=== PATIENT | female | born 1945 | race Caucasian/White ===

== ENCOUNTER 2016-06-10 11:20 | Day surgery (SDC) | payer MEDICARE, OTHER ==
[~2016-06-10] VITALS: Ht 157.5 cm; Wt 81.8 kg
[2016-06-10] VITALS (10 sets, daily range): BP systolic 114–142; BP diastolic 48–70
[~2016-06-10 11:20] MED LIST: ACHD5005 PO; OMEP-10 PO; PRX20T PO; SCR1T1 PO; SIMV20TA3 PO
[2016-06-10] MEDS ORDERED: NS IV 1000 ML 1,000 ML ONE (11:34)
[2016-06-10] MEDS ORDERED: LIDOCAINE 1% INJ 20 ML (XYLOCAINE) VIAL ONE (11:34)
[2016-06-10] MEDS ORDERED: HEParin (CATH LAB) 2,000 ML IV ONE (11:34)
[2016-06-10] MEDS ORDERED: fentaNYL INJECTION 100 MCG/2 ML AMP ONE (11:38)
[2016-06-10] MEDS ORDERED: MIDAZOLAM 5 MG/5 ML (VERSED) VIAL ONE (11:38)
--- NOTE | 2016-06-10 11:39 | ED Chest Pain ---
General Stated Complaint: EKG CHANGES Source: patient Exam Limitations: no limitations History of Present Illness Time seen by provider: 11:25 Initial Comments Here from the surgery Center for Dr. Ramirez, orthopedics. Patient was getting ready to undergo procedure for right shoulder rotator cuff. Apparently during anesthesia, patient was having rhythm changes on EKG. They stopped anesthesia and woke patient. She was then complaining of back pain. Apparently patient has been having intermittent back pain with activity that resolves during rest. She was having the same pain today. They did initiate nitroglycerin paste and morphine 2 mg IV which then resolved her pain. Currently she is pain-free. She has new onset of left bundle branch block. This continues. She does have thalassemia disorder and anemia. Timing/Duration: intermittent Severity/Quality: moderate, aching Location: back Radiation: no radiation Prior CP/Workup: no prior cardiac workup ASA po PERSONALIZED LIVING MANAGER: No NTG SL PERSONALIZED LIVING MANAGER: Yes Associated Symptoms: No abdominal pain, back painNo diaphoresis, No fever/ chills, No nausea/vomiting, No shortness of breath, No weakness Allergies and Home Medications Allergies Coded Allergies: No Known Drug Allergies (Unverified , 07/13/13) Home Medications Hydrocodone Bit/Acetaminophen 1 Each Tablet #60 1-2 EACH PO Q6H Prescribed by: FOUZIA ROSALES on 07/17/13 1102 Paroxetine Hcl 20 Mg Tablet #30 1 TAB PO DAILY (Reported) Sucralfate 1 Gm Tab #60 1 GM PO BID Prescribed by: FOUZIA ROSALES on 07/17/13 1057 Review of Systems Constitutional: see HPINo chills, No fever EENTM: No Symptoms Reported Respiratory: No Symptoms ReportedDenies Shortness of Air, Denies SOA at Rest Cardiovascular: See HPI Chest PainDenies Edema, Denies Palpitations Gastrointestinal: No Symptoms Reported Genitourinary: No Symptoms Reported Musculoskeletal: see HPI back pain joint pain Skin: no symptoms reported Psychiatric/Neurological: No Symptoms Reported All Other Systems Reviewed Negative Unless Noted: Yes Past Pwrxcgj-Igfycn-Kgofvr Hx Patient Social History Alcohol Use: Denies Use Recreational Drug Use: No Smoking Status: Never a Smoker Immunizations Up To Date Tetanus Booster (TDap): Unknown PED Vaccines UTD: No Date of Pneumonia Vaccine: Feb 19, 2010 Date of Influenza Vaccine: Mar 12, 2012 Surgeries HX Surgeries: Yes (shoulder surgery 2007) Respiratory Hx Respiratory Disorders: No Cardiovascular Hx Cardiac Disorders: No Neurological Hx Neurological Disorders: No Reproductive System Hx Reproductive Disorders: No Sexually Transmitted Disease: No HIV/AIDS: No Female Reproductive Disorders: Denies Genitourinary Hx Genitourinary Disorders: No Gastrointestinal Hx Gastrointestinal Disorders: Yes Musculoskeletal Hx Musculoskeletal Disorders: No Endocrine Hx Endocrine Disorders: No HEENT HX ENT Disorders: No Loss of Vision: Denies Hearing Impairment: Denies Cancer Hx Cancer: No Psychosocial Hx Psychiatric Problems: No Integumentary HX Skin/Integumentary Disorder: No Blood Transfusions Hx Blood Disorders: No Adverse Reaction to a Blood Tr: No Reviewed Nursing Assessment Reviewed/Agree w Nursing PMH: Yes Family Medical History Significant Family History: Heart Disease Family Medial History: Cancer 03 FATHER 03 MOTHER Cancer of colon 03 FATHER 03 MOTHER Malignant neoplasm of lung 09 BROTHER Psychotic disorder 09 BROTHER Physical Exam Vital Signs Capillary Refill : General Appearance: No Apparent Distress WD/WN HEENT: PERRL/EOMI Pharynx Normal Neck: Non Tender Supple Respiratory: Lungs Clear Normal Breath Sounds Cardiovascular: Regular Rate, Rhythm No Murmur Gastrointestinal: Non Tender Soft Extremity: Non Tender No Calf Tenderness Neurologic/Psychiatric: Alert Oriented x3 Skin: Normal Color Warm/Dry Progress/Results/Core Measures Results/Orders My Orders Orders-PREMA OROZCO MD Cbc With Automated Diff (06/10/16 11:33) Magnesium (06/10/16 11:33) Chest 1 View, Ap/Pa Only (06/10/16 11:33) Ekg Tracing (06/10/16 11:33) Cardiac Profile 1 (06/10/16 11:33) Comprehensive Metabolic Panel (06/10/16 11:33) Myoglobin Serum (06/10/16 11:33) Protime With Inr (06/10/16 11:33) Partial Thromboplastin Time (06/10/16 11:33) O2 (06/10/16 11:33) Monitor-Rhythm Ecg Trace Only (06/10/16 11:33) Lipid Panel (06/11/16 06:00) Aspirin Chewable Tablet (Baby Aspirin Ch (06/10/16 11:45) Saline Lock/Iv-Start (06/10/16 11:33) Fibrin Degradation Products (06/10/16 11:33) Lidocaine 1% Injection (Xylocaine 1% Inj (06/10/16 11:34) Ns Iv 1000 Ml (Sodium Chloride 0.9%) (06/10/16 11:34) Heparin (Cardiology Manager) (Heparin (Cardiology Manager)) (06/10/16 11:34) Progress Note : Progress Note Seen and evaluated on arrival by EMS. IV by EMS. Labs, EKG and chest x-ray ordered. ASA 324 milligrams by mouth ordered. 1134: I did discuss the case with Dr. Mora. In light of new left bundle-branch block and pain relieved by nitroglycerin he is considering catheter lab evaluation. 1138: Dr. Mora in the ER evaluating. Monitor patient. 1145: Dr. Mora will take the patient to the Cardiology Manager. Labs pending. 1200: Patient to Cardiology Manager with Cardiology Manager team. Chest x-ray not done in ER. ECG Initial ECG Impression Date: Jun 10, 2016 Initial ECG Impression Time: 11:28 Initial ECG Rate: 94 Initial ECG Rhythm: Normal Sinus Comment Sinus rhythm with left bundle branch block. Normal axis. No evidence of ST elevation DE. Unchanged from previous sinus rhythm noted on 07/13/13 from EKG in our system and from 06/06/16 from EKG from surgery Center. Departure Communication Time/Spoke to Admitting Phy: 11:34 Impression Impression: Primary Impression: Chest pain Qualified Code: R07.2 - Precordial pain Additional Impression: Left bundle branch block Disposition: 01 HOME, SELF-CARE Condition: Improved Decision to Admit Reason: Admit from ER (General) Decision to Admit/Date: Jun 10, 2016 Time/Decision to Admit Time: 11:34 Departure-Patient Inst. Referrals: CHIQUI NASCIMENTO MD (PCP/Family) Primary Care Physician PREMA OROZCO MD Jun 10, 2016 11:39
[2016-06-10] MEDS ORDERED: ASPIRIN 81 MG CHEW (CHILDREN'S ASA) PO ONE (11:45)
[2016-06-10 12:05] LABS: BASOPHILS % (AUTO) 0 % (0-10); EOSINOPHILS % (AUTO) 1 % (0-10); LYMPHOCYTES # (AUTO) 1.4 X 10^3 (1.0-4.0); LYMPHOCYTES % (AUTO) 19 % (12-44); MEAN CORPUSCULAR HEMOGLOBIN 22 PG (25-34); MEAN CORPUSCULAR HGB CONC 33 G/DL (32-36); MEAN CORPUSCULAR VOLUME 66 FL (80-99); MEAN PLATELET VOLUME 10.6 FL (7.4-10.4); MONOCYTES # (AUTO) 0.3 X 10^3 (0.0-1.0); MONOCYTES % (AUTO) 4 % (0-12); NEUTROPHILS # (AUTO) 5.7 X 10^3 (1.8-7.8); NEUTROPHILS % (AUTO) 76 % (42-75); PLATELET COUNT 309 10^3/uL (130-400); RED CELL DISTRIBUTION WIDTH 16.6 % (10.0-14.5); WHITE BLOOD COUNT 7.5 10^3/uL (4.3-11.0)
--- NOTE | 2016-06-10 12:13 | Cardiology History & Physical ---
HPI-Cardiology Cardiology Consultation Date of Consultation 06/10/16 Date of Admission Indication: chest pain/back pain HPI 71-year-old lady with no significant cardiac history, she was scheduled for rotator cuff surgery today, after anesthesia induction she had EKG changes with ST elevation, procedure was aborted. Her EKG showed left bundle branch block. She was having mild vague upper back discomfort. She was transferred to the emergency room. She has been reporting episodes of back pain with exertion on and off for the last few months, had an episode where she had severe back pain she had to sit down and reporting improvement up and sitting down and resting. No reproducible pain. No palpitation, no syncope or near syncopal episodes. Had borderline hyperlipidemia. PMH-Cardiology Immunizations Up To Date Tetanus Booster (DTap): Unknown Date of Pneumonia Vaccine: Feb 19, 2010 Date of Influenza Vaccine: Mar 12, 2012 Surgeries HX Surgeries: Yes (shoulder surgery 2007) Respiratory Hx Respiratory Disorders: No Cardiovascular Hx Cardiovascular Disorders: No Cardiac Disorders: High Cholesterol Neurological Hx Neurological Disorders: No Reproductive System Hx Reproductive Disorders: No Sexually Transmitted Disease: No HIV/AIDS: No Female Reproductive Disorders: Denies Genitourinary Hx Genitourinary Disorders: No Gastrointestinal Hx Gastrointestinal Disorders: Yes Gastrointestinal Disorders: Gastroesophageal Reflux Musculoskeletal Hx Musculoskeletal Disorders: No Endocrine Hx Endocrine Disorders: No HEENT HX ENT Disorders: No Loss of Vision: Denies Hearing Impairment: Denies Cancer Hx Cancer: No Psychosocial Hx Psychiatric Problems: Yes Behavioral Health Disorders: Depression Integumentary HX Skin/Integumentary Disorder: No Blood Transfusions Hx Blood Disorders: No Adverse Reaction to a Blood Tr: No Other PMHx Other PMHx: no significant past medical history except for shoulder surgery and hand surgery in the past Social History Patient Social History Alcohol Use: Denies Use Recreational Drug Use: No Smoking: Never smoker Family Hx Significant Family History: Heart Disease Family History: 03 FATHER Cancer Cancer of colon 03 MOTHER Cancer Cancer of colon 09 BROTHER Malignant neoplasm of lung 09 BROTHER Psychotic disorder ROS-Cardiology Review of Systems General: No Chills, No Night Sweats, No Fatigue, No Malaise, No Appetite HEENT: No Head Aches, No Visual Changes, No Eye Pain, No Ear Pain, No Dysphasia , No Sinus Congestion, No Post Nasal Drip, No Sore Throat Pulmonary: No Dyspnea, No Cough, No Pleuritic Chest Pain Cardiovascular: : Chest Pain (atypical, mainly back pain)No: Edema, Lt Headedness, Orthopnea, Palpitations, Paroxysmal Noc. Dyspnea Gastrointestinal: No: Abdominal Pain, Constipation, Diarrhea, Hematochezia, Melena, Nausea, Vomiting Genitourinary: No Dysuria, No Frequency, No Incontinence, No Hematuria, No Retention Musculoskeletal: : arm pain: back pain: shoulder painNo: foot pain, hand pain, leg pain, neck pain Neurological: No: Change in speech, Confusion, Incoordination, Numbness, Seizures, Weakness Home Medications & Allergies Allergies: Coded Allergies: No Known Drug Allergies (Unverified , 07/13/13) Home Medication List Reviewed: Yes Exam-Cardiology Exam General Appearance: Alert, Oriented X3, Cooperative, No Acute Distress HEENT: Atraumatic, PERRLA Respiratory: Clear to Auscultation, Normal Air Movement Cardiovascular: Regular Rate, Normal S1, Normal S2, No Murmurs Abdominal: Normal Bowel Sounds, Soft, No Tenderness, No Hepatosplenomegaly, No Masses Extremities: No Clubbing, No Cyanosis, No Edema, Normal Pulses, No Tenderness/ Swelling Skin: No Rashes, No Breakdown, No Significant Lesion Neuro: Normal Gait, Normal Speech, Strength at 5/5 X4 Ext, Normal Tone, Sensation Intact Psych/Mental Status: Mental Status NL, Mood NL Results Labs Labs Laboratory Tests 06/10/16 11:55: Basophils # (Auto) 0.0, Basophils (%) (Auto) 0, Eosinophils # (Auto) 0.0, Eosinophils (%) (Auto) 1, Hematocrit 31L, Hemoglobin 10.2L, Lymphocytes # (Auto ) 1.4, Lymphocytes (%) (Auto) 19, Mean Corpuscular Hemoglobin 22L, Mean Corpuscular Hemoglobin Concent 33, Mean Corpuscular Volume 66L, Mean Platelet Volume 10.6H, Monocytes # (Auto) 0.3, Monocytes (%) (Auto) 4, Neutrophils # ( Auto) 5.7, Neutrophils (%) (Auto) 76H, Platelet Count 309, Red Blood Count 4.70 , Red Cell Distribution Width 16.6H, White Blood Count 7.5 A/P-Cardiology Admission Diagnosis Chest pain Left bundle branch block Coronary artery disease Rotator cuff tear Back pain Assessment/Plan Atypical chest pain, lumbar back pain with new onset left bundle branch block, responded to nitroglycerin patch and morphine. Has been having recurrent back pain recently. I am planning to proceed with emergency cardiac catheterization possible PTCA Mother hyperlipidemia, monitored by diet. Left bundle branch block, new onset. Questionable source. Monitor. Daughter has history of WPW and ablation done in the past. Brother had cardiac history. Rotator cuff, patient was scheduled for surgery today which was canceled. Clinical Quality Measures AMI/AHF: ASA po Prior to arrival: No STEPHEN ADAM MD Jun 10, 2016 12:12
--- NOTE | 2016-06-10 12:13 | Cardiac Procedure Note-CS/ASA ---
Pre-Procedure Note Pre-Op Procedure Note H&P Reviewed The H&P was reviewed, patient examined and no changes noted. Date H&P Reviewed: Jun 10, 2016 Time H&P Reviewed: 12:13 Conscious Sedation Pre-Proced Time Reviewed: 12:13 ASA Class: 3 Airway Mallampati Classification: (kiana appropriate class) I. II. III, IV Lungs Heart ASA score ASA 1: a normal healthy patient ASA 2: a patient with a mild systemic disease (mid diabetes, controlled hypertension, obesity x ASA 3: a patient with a severe systemic disease that limits activity (angina , COPD, prior Myocardial infarction) ASA 4: a patient with an incapacitating disease that is a constant threat to life (CHF, renal failure) ASA 5: a moribund patient not expected to survive 24 hrs. (ruptured aneurysm) ASA 6: a declared brain patient whose organs are being harvested. For emergent operations, add the letter E after the classification Grade 3 Sedation Plan: Analgesia, Amnesia, Plan communicated to team members, Discussed options with patient/fam, Discussed risks with patient/fam Note The patient is an appropriate candidate to undergo the planned procedure, sedation, and anesthesia. The patient immediately re-assessed prior to indication. STEPHEN ADAM MD Jun 10, 2016 12:13
[2016-06-10 12:23] LABS: ALANINE AMINOTRANSFERASE 19 U/L (0-55); ALBUMIN 4.2 G/DL (3.2-4.5); ANION GAP 10 MMOL/L (5-14); ASPARTATE AMINO TRANSFERASE 20 U/L (5-34); BILIRUBIN,TOTAL 0.7 MG/DL (0.1-1.0); BLOOD UREA NITROGEN 10 MG/DL (7-18); BUN/CREATININE RATIO 14; CALCIUM 8.3 MG/DL (8.5-10.1); CARBON DIOXIDE 23 MMOL/L (21-32); CHLORIDE 108 MMOL/L (98-107); CREATININE SERUM 0.71 MG/DL (0.60-1.30); GFR ESTIMATED > 60; GLUCOSE 102 MG/DL (70-105); MAGNESIUM 1.9 MG/DL (1.8-2.4); POTASSIUM 3.8 MMOL/L (3.6-5.0); SODIUM 141 MMOL/L (135-145); TOTAL PROTEIN 6.7 G/DL (6.4-8.2)
[2016-06-10 12:30] LABS: MYOGLOBIN SERUM 37.2 NG/ML (10.0-92.0)
[2016-06-10] MEDS ORDERED: NS IV 1000 ML 1,000 ML IV SCH ×2 (12:30→12:32)
[2016-06-10] MEDS ORDERED: PATIENT MAY USE OWN MEDS, ALL PO SCH (12:45)
--- NOTE | 2016-06-10 12:46 | Discharge Inst-Post CATH ---
Discharge Inst-CATH Post Cardiac Cath D/C Inst Follow Up/Plan Appointment with Dr Mora's office in 2-4 weeks CARDIAC CATH DISCHARGE INSTRUCTIONS *Hold Metformin for 48 hours post heart cath. ACTIVITY * Go Home directly and rest. * Limit activity of the leg (or wrist if it was used) for 7 days including aerobics, swimming, jogging, bicycling, etc. * Restrict stair-climbing for 7 days if possible, if not, climb up with your non -cath leg, then bring together on the same step. * Avoid lifting, pushing, pulling or excessive movement of the affected extremity for 7 days. * Customary sexual activity may be resumed after 2 days-use caution not to use a position that strains or causes pain to the affected extremity. * No driving for 24 hours. * NO SMOKING. * Avoid straining for bowel movements for 7 days. * Gentle walking on level ground is allowed. * Returning to work will depend on the type of procedure and the results. Your doctor will discuss this with you. CALL YOUR DOCTOR FOR ANY OF THE FOLLOWING: *If bleeding from the puncture site occurs- Apply gentle pressure to site with clean cloth and call your doctor or EMS. * If a knot or lump forms under the skin, increases in size, or causes pain. * If bruising appears to be worsening or moving further down your leg instead of disappearing. * Temperature above 101 F. CARE OF YOUR GROIN INCISION; * Bruising or purple discoloration of the skin near the puncture site is common. * You may shower only, no bathtub bathing for 5 days. Be careful to avoid slipping as your leg may feel stiff. * If a closure device was used on your femoral artery, please see the attached guide regarding care of the device and your leg. * REMOVE the dressing from your groin the next day after your procedure in the shower. CARE OF YOUR WRIST INCISION; * Bruising or purple discoloration of the skin near the puncture site is common. * You may shower. * DO NOT submerge wrist. * Remove dressing in 24 hours. STEPHEN MORA MD Jun 10, 2016 12:46
[2016-06-10 12:53] LABS: INR 1.1 (0.8-1.4); PROTHROMBIN TIME PATIENT 14.2 SEC (12.2-14.7)
[2016-06-10] MEDS ORDERED: FLU TRIvalent (5 YOA+) 2016-17 (AFLURIA) 0.5 ML IM ONE (14:15)
--- NOTE | 2016-06-11 10:31 | DISCHARGE SUMMARY ---
REFERRING PHYSICIAN: Dr. Ramirez. BRIEF HISTORY: Ms. Roberts is a 71-year-old lady admitted through the emergency room with acute chest pain and new onset left bundle branch block. She was brought for emergency cardiac catheterization. PROCEDURE NOTE: After explaining the procedure to the patient, all pros and cons were explained. All questions were answered. The patient signed consent, then she was placed on the cardiac catheterization laboratory. The right groin was prepped in a sterile fashion. Local anesthesia applied to the right groin. 6-Gu[place]alan sheath was placed in the left femoral artery. Combination of right and left Inocencia catheter were used to access the right and left coronary system. Multiple views were obtained. Pigtail catheter advanced to the left ventricular cavity. Pressure was measured. Left ventriculogram was done. Pullback LV to aorta was done. The aortic arch angiogram was done. At the end of the procedure, sheath was removed. Mynx device deployed. Hemostasis achieved. FINDINGS: HEMODYNAMIC: LV pressure 145/11, end-diastolic pressure of 11, aortic pressure 158/73, mean of 82. No significant gradient across the aortic valve. ANATOMY: 1. The left main coronary artery is bifurcating with no obstructive disease. 2. The left anterior descending artery is moderate in size with no significant obstructive disease. 3. Left circumflex artery is moderate in size with no significant obstructive disease. 4. Ramus intermedius artery is moderate in size with no significant obstructive disease. 5. Right coronary artery is a nondominant artery, moderate in size with no significant obstructive disease. 6. Left ventriculogram was done the right anterior oblique position. The left ventricle is normal in size with normal systolic function. Estimated ejection fraction 60%. 7. Aortic arch angiogram: The aortic arch is normal in size. No dissection or aneurysm was seen. Origin of the innominate artery, subclavian artery and carotid artery appeared normal. IN CONCLUSION: 1. Mild coronary artery disease. No significant obstructive disease was noted. 2. Normal left ventricular size and systolic function. Estimated ejection fraction is 60%. Normal left ventricular end diastolic pressure. 3. Normal aortic arch and great neck vessels. DISCUSSION AND RECOMMENDATION: Ms. Roberts's chest pain is probably noncardiac. She has new onset left bundle branch block probably conduction disease abnormality. The patient will be discharged home. Follow-up as an outpatient. FINAL DIAGNOSES: 1. Chest pain, nonspecific etiology. 2. Back pain. 3. Left bundle branch block. 4. Rotator cuff injury. Job ID: [id number] Dictated Date: 06/10/2016 12:39:28 Game Programmer Date: 06/11/2016 10:30:14/anselmo
[2016-08-10] MEDS ORDERED: OXYC-197 PO ×2 (09:01→13:24)
== END 2016-06-10 17:10 | disposition home or self-care (01) ==
LOC: EDUNIT# 11:24 → ER 11:25 → CATH 11:42 → ICU 12:50 → CATH 17:10
PROVIDERS: ATTEND Internal Medicine Cardiovascular Disease
DX: R07.89 Other chest pain (principal); I44.7 Left bundle-branch block, unspecified; M54.9 Dorsalgia, unspecified; I25.10 Atherosclerotic heart disease of native coronary artery without angina pectoris; M75.101 Unspecified rotator cuff tear or rupture of right shoulder, not specified as traumatic; Z79.899 Other long term (current) drug therapy
CPT/HCPCS: 36221; 36415; 80053; 83735; 83874; 84484; 85025; 85379; 85610; 85730; 93005; 93041; 93458

== ENCOUNTER 2016-08-04 11:37 | Outpatient (CLI) | payer MEDICARE, OTHER ==
[~2016-08-04] VITALS: Ht 157.5 cm; Wt 84.1 kg
--- OUTSIDE RECORDS SUMMARY | 2016-08-04 11:42 | XMS REPORT | Continuity of Care Document ---
Author Author [facility] Organization [facility] Address Unknown Phone Unavailable Care Team Providers Care Secondary History Teacher Name Role Phone CHIQUI NASCIMENTO MD PCP Insurance Providers Payer Name Policy Number Subscriber Name Relationship [employer] [id number] [place] [employer] Self / Same As Patient Enter Insurance Name [id number] [place] [employer] Self / Same As Patient Advance Directives Directive Response Recorded Date/Time Advance Directives No 06/10/16 12:45pm Health Care Power of Evp General Counsel No 06/10/16 12:45pm Organ Donor No 06/10/16 12:45pm Resuscitation Status Full Code 06/10/16 12:45pm Problems Active Problems Medical Problem Onset Date Status Chest pain Unknown Acute Left bundle branch block Unknown Acute Pancreatitis Unknown Acute Medications Current Home Medications Medication Dose Units Route Directions Days/Qty Instructions Start Date Paroxetine Hcl 20 Mg 1 Tab Oral Daily 30 07/13/13 Sucralfate 1 Gm 1 Gm Oral Twice A Day 60 07/17/13 Acetaminophen/Hydrocodone Bitart 1 Each 1-2 Each Oral Every 6 Hours for Abdominal Pain 60 07/17/13 Past Home Medications Medication Directions Ordered Status Simvastatin 20 Mg Tablet, 20 Mg Oral Daily 07/13/13 Discontinued Omeprazole 20 Mg Capsule.dr, 20 Mg Oral Daily 07/13/13 Discontinued Social History Social History Problem Response Recorded Date/Time Alcohol Use Denies Use 07/13/2013 11:16pm Recreational Drug Use No 07/13/2013 11:16pm Recent Foreign Travel No 07/13/2013 11:16pm Recent Infectious Disease Exposure No 07/13/2013 11:16pm Hospitalization with Isolation Denies 07/17/2013 2:56pm Sexually Transmitted Disease No 06/10/2016 11:20am HIV/AIDS No 06/10/2016 11:20am Smoking Status Never a Smoker 06/10/2016 12:45pm Recent Hopitalizations No 06/10/2016 11:20am Sexually Transmitted Disease No 06/10/2016 11:20am Hospitalization with Isolation Denies 07/17/2013 2:56pm Query Response Start Date Stop Date Smoking Status Never a Smoker Hospital Discharge Instructions Patient Instructions Physician Instructions Follow Up/Plan Appointment with Dr Mora's office in 2-4 weeks CARDIAC CATH DISCHARGE INSTRUCTIONS *Hold Metformin for 48 hours post heart cath. ACTIVITY * Go Home directly and rest. * Limit activity of the leg (or wrist if it was used) for 7 days including aerobics, swimming, jogging, bicycling, etc. * Restrict stair-climbing for 7 days if possible, if not, climb up with your non-cath leg, then bring together on the same step. * Avoid lifting, pushing, pulling or excessive movement of the affected extremity for 7 days. * Customary sexual activity may be resumed after 2 days-use caution not to use a position that strains or causes pain to the affected extremity. * No driving for 24 hours. * NO SMOKING. * Avoid straining for bowel movements for 7 days. * Gentle walking on level ground is allowed. * Returning to work will depend on the type of procedure and the results. Your doctor will discuss this with you. CALL YOUR DOCTOR FOR ANY OF THE FOLLOWING: *If bleeding from the puncture site occurs- Apply gentle pressure to site with clean cloth and call your doctor or EMS. * If a knot or lump forms under the skin, increases in size, or causes pain. * If bruising appears to be worsening or moving further down your leg instead of disappearing. * Temperature above 101 F. CARE OF YOUR GROIN INCISION; * Bruising or purple discoloration of the skin near the puncture site is common. * You may shower only, no bathtub bathing for 5 days. Be careful to avoid slipping as your leg may feel stiff. * If a closure device was used on your femoral artery, please see the attached guide regarding care of the device and your leg. * REMOVE the dressing from your groin the next day after your procedure in the shower. CARE OF YOUR WRIST INCISION; * Bruising or purple discoloration of the skin near the puncture site is common. * You may shower. * DO NOT submerge wrist. * Remove dressing in 24 hours. Plan of Care Discharge Date 06/10/16 5:10pm Instructions/Education Provided CARDIAC CATH DISCHARGE INSTRUC Prescriptions See Medication Section Functional Status Query Response Date Recorded Patient Orientation Person Place Time Situation Eyes Open June 10, 2016 5:24pm Allergies, Adverse Reactions, Alerts No known allergies. Immunizations Name Given Type FLU TRIvalent 5 years - Adult 06/10/16 Administered Vital Signs Acute Vital Signs Vital Response Date/Time Temperature (Fahrenheit) 97.5 degrees F (97.6 - 99.5) 06/10/2016 4:59pm Temperature (Calculated Celsius) 36.81772 degrees C (36.4 - 37.5) 06/10/2016 4:59pm Temperature Source Tympanic 06/10/2016 4:59pm Pulse Rate (adult) 84 bpm (60 - 90) 06/10/2016 4:59pm Respiratory Rate 16 bpm (12 - 24) 06/10/2016 4:59pm O2 Sat by Pulse Oximetry 99 % (88 - 100) 06/10/2016 4:59pm Blood Pressure 123/55 mm Hg 06/10/2016 4:59pm Blood Pressure Mean 77 mm Hg 06/10/2016 4:59pm Pain Numeric Pain Scale 0-No Pain 06/10/2016 5:10pm Height (Feet) 5 feet 06/10/2016 12:45pm Height (Inches) 2.00 inches 06/10/2016 12:45pm Height (Calculated Centimeters) 157.328658 cm 06/10/2016 12:45pm Weight (Pounds) 180 pounds 06/10/2016 12:45pm Weight (Ounces) 5.0 oz 06/10/2016 12:45pm Weight (Calculated Grams) 42253.38 gm 06/10/2016 12:45pm Weight (Calculated Kilograms) 81.631259 kilograms 06/10/2016 12:45pm Calculated BMI 33.0 06/10/2016 12:45pm Capillary Refill Capillary Refill Less Than 3 Seconds 06/10/2016 4:59pm Results Pending Laboratory Results Test Name Collection Date/Time Procedures Procedure Status Date Provider(s) Tracing only of electrocardiogram Completed 06/10/16 PREMA OROZCO MD Encounters Encounter Location Arrival/Admit Date Discharge/Depart Date Attending Provider Departed [facility] 06/10/16 11:42am 06/10/16 5:10pm STEPHEN MORA MD Registered Clinic [facility] 05/12/16 9:04am STEPHANIA LONG Recent Diagnosis Left bundle branch block Pancreatitis
[2016-08-04] MEDS ORDERED: PANT40TA3 PO (11:43)
[2016-08-04] MEDS ORDERED: PARO10TA3 PO (11:43)
[2016-08-04 12:01] VITALS: BP 124/71
[2016-08-04 12:36] LABS: BASOPHILS % (AUTO) 1 % (0-10); EOSINOPHILS # (AUTO) 0.2 10^3/uL (0.0-0.3); EOSINOPHILS % (AUTO) 3 % (0-10); LYMPHOCYTES # (AUTO) 1.7 X 10^3 (1.0-4.0); LYMPHOCYTES % (AUTO) 31 % (12-44); MEAN CORPUSCULAR HEMOGLOBIN 21 PG (25-34); MEAN CORPUSCULAR HGB CONC 33 G/DL (32-36); MEAN CORPUSCULAR VOLUME 66 FL (80-99); MEAN PLATELET VOLUME 11.8 FL (7.4-10.4); MONOCYTES # (AUTO) 0.4 X 10^3 (0.0-1.0); MONOCYTES % (AUTO) 8 % (0-12); NEUTROPHILS # (AUTO) 3.2 X 10^3 (1.8-7.8); NEUTROPHILS % (AUTO) 58 % (42-75); PLATELET COUNT 367 10^3/uL (130-400); RED BLOOD COUNT 5.01 10^6/uL (4.35-5.85); RED CELL DISTRIBUTION WIDTH 16.3 % (10.0-14.5); WHITE BLOOD COUNT 5.4 10^3/uL (4.3-11.0)
== END 2016-08-04 12:46 | disposition home or self-care (01) ==
LOC: PREOP 11:37
PROVIDERS: ATTEND Orthopaedic Surgery
DX: Z01.812 Encounter for preprocedural laboratory examination (principal); Z11.2 Encounter for screening for other bacterial diseases; M75.101 Unspecified rotator cuff tear or rupture of right shoulder, not specified as traumatic
CPT/HCPCS: 36415; 85025; 87081

== ENCOUNTER 2016-08-10 08:20 | Day surgery (SDC) | payer MEDICARE, OTHER ==
--- NOTE | 2016-08-09 07:50 | HISTORY AND PHYSICAL ---
DATE OF ADMISSION: 08/10/2016 DICTATING PHYSICIAN: Dr. Ramirez Outpatient surgery for right shoulder arthroscopy and rotator cuff repair. HISTORY: The patient is a 71-year-old, uwnww-ynvw-wtoxyxuz female with a several month history of progressively worsening right shoulder pain. She reports pain with overhead activities. She underwent an MRI which revealed near full thickness rotator cuff tearing at the supraspinatus. She reports weakness in her arm and functional impairment and because of failure to improve with conservative measures, the patient elected to proceed with surgical intervention. REVIEW OF SYSTEMS: No chest pain, no shortness of breath. No dysuria. PAST MEDICAL HISTORY: Arrhythmia. PAST SURGICAL HISTORY: 1. Left shoulder arthroscopy. 2. Right long finger trigger release. SOCIAL HISTORY: The patient denies tobacco use. She drinks alcohol socially. FAMILY HISTORY: Significant for coronary artery disease and colon cancer. PRIMARY CARE PROVIDER: Dr. Camarena. MEDICATIONS: 1. Paxil. 2. Pantoprazole. ALLERGIES: TAPE PHYSICAL EXAMINATION: The patient is well-developed, well-nourished, in no acute distress. HEENT: Normocephalic, atraumatic. Pupils are equal, round, and active to light, oropharynx is clear. NECK: Supple. No lymphadenopathy. LUNGS: Clear to auscultation bilaterally. HEART: Regular rate and rhythm. ABDOMEN: Soft, nontender, nondistended. EXTREMITY EXAM: The right shoulder demonstrates no gross atrophy. No skin lesions are noted. She has intact sensation throughout. She is nontender over her acromioclavicular joint. She has no pain with crossed body adduction. She has a positive Neer sign and positive Clifford sign. She has weakness with abduction and external rotation with a negative drop arm sign. Active forward elevation is 170 degrees, external rotation is 60 degrees and internal rotation is 70 degrees. IMPRESSION: Right shoulder rotator cuff tear. PLAN: Right shoulder arthroscopy with open rotator cuff repair. The risks, benefits, options, ramifications and recovery have been discussed at length with the patient and she understands and wishes to proceed. Job ID: [id number] Dictated Date: 08/02/2016 10:48:00 Time Study Statistician Date: 08/02/2016 11:24:36/safia
[~2016-08-10] VITALS: Ht 157.5 cm; Wt 84.1 kg
[~2016-08-10 08:20] MED LIST changes: +PANT40TA3 PO; +PARO10TA3 PO
[2016-08-10] MEDS ORDERED: CATHETER FLUSH 10 ML SYR IV PRN (08:45)
[2016-08-10] MEDS ORDERED: ceFAZolin 1 GM/NS 50 ML IVPB IV ONE ×2 (08:45)
--- NOTE | 2016-08-10 08:59 | Progress Note-Pre Operative ---
Pre-Operative Progress Note H&P Reviewed The H&P was reviewed, patient examined and no changes noted. Date H&P Reviewed: Aug 10, 2016 Time H&P Reviewed: 08:58 Pre-Operative Diagnosis: right rotator cuff tear LAINE BUCKLEY MD Aug 10, 2016 08:59
--- NOTE | 2016-08-10 08:59 | Progress Note-Post Operative ---
Post-Operative Progess Note Carbon Cutter None Pre-Operative Diagnosis right rotator cuff tear Post-Operative Diagnosis right rotator cuff tear, glenoid chondromalacia and SLAP tear Post-Op Procedure Note Date of Procedure: Aug 10, 2016 Name of Procedure: right shoulder arthroscopic biceps tenotomy, glenoid chondroplasty, acromioplasty and open rotator cuff repair Anesthesia Type GETA Estimated blood loss (mL): minimal Packing: none Specimen(s) collected none LAINE BUCKLEY MD Aug 10, 2016 08:59
[2016-08-10] MEDS ORDERED: oxyCODONE/APAP 5/325MG (PERCOCET 5) TABLET PO PRN (09:00)
[2016-08-10] MEDS ORDERED: OXYC-197 PO ×2 (09:01→13:24)
[2016-08-10 09:03] VITALS: BP 146/68
[2016-08-10] MEDS ORDERED: MIDAZOLAM 2 MG/2 ML (VERSED) VIAL ONE ×2 (09:06→10:33)
[2016-08-10] MEDS: LACTATED RINGERS 1,000 ML IV PRN ×2 (09:51→11:20)
[2016-08-10] MEDS ORDERED: fentaNYL INJECTION 100 MCG/2 ML AMP ONE (10:33)
[2016-08-10] MEDS ORDERED: SEVOFLURANE (ULTANE) 15 ML INHAL SOLN ONE ×3 (10:33→11:57)
[2016-08-10] MEDS ORDERED: LACTATED RINGERS 1,000 ML IV ONE ×2 (10:33→11:32)
[2016-08-10] MEDS ORDERED: LIDOCAINE PF 2% 10 ML (XYLOCAINE) AMP ONE (10:33)
[2016-08-10] MEDS ORDERED: ONDANSETRON 4 MG/2 ML (SDV) Z0FRAN ONE (10:33)
[2016-08-10] MEDS ORDERED: proPOfol 200 MG/20 ML (DIPRIVAN) VIAL IV ONE (10:33)
[2016-08-10] MEDS ORDERED: ROCURONIUM 50 MG/5 ML (ZEMURON) VIAL IV ONE (10:34)
[2016-08-10] MEDS ORDERED: NEOSTIGMINE (BLOXIVERZ ) 1 MG/1ML 10 ML VIAL ONE (11:47)
[2016-08-10] MEDS ORDERED: GLYCOPYRROLATE 0.2 MG/ML (ROBINUL) 2 ML VIAL ONE (11:47)
--- NOTE | 2016-08-10 11:56 | Anesthesia-Peripheral Nerve Bl ---
Procedure Start/Stop Time Date of Procedure: Aug 10, 2016 Start Time: 09:25 Stop Time: 09:37 Peripheral Nerve Block Peripheral Nerve Blockade Risk/Benefits/Alternatives discussed, including IV injection leading to complications or seizures, nerve irritation or damage, pneumothorax, total spinal anesthesia, injection, and/or bleeding. Specifically requested for management of pain by: Patient Condition Vital Signs Vital Signs Date Time Temp Pulse Resp B/P (MAP) Pulse Ox O2 Delivery O2 Flow Rate FiO2 08/10/16 09:03 97.8 74 16 146/68 98 Room Air Narrative Injection was made incrementally with constant monitoring. Events Patient Conditon Post Peripheral Nerve Block Post Peripheral Nerve Block Vital Signs: Blood Pressure: Systolic Diastolic Heart Rate Blood Pressure Systolic: 146 Blood Pressure Diastolic: 68 Pulse Rate (adult): 74 AALIYAH PERKINS CRNA Aug 10, 2016 11:56
--- NOTE | 2016-08-10 11:58 | Anesthesia-Peripheral Nerve Bl ---
Peripheral Nerve Block Peripheral Nerve Blockade Risk/Benefits/Alternatives discussed, including IV injection leading to complications or seizures, nerve irritation or damage, pneumothorax, total spinal anesthesia, injection, and/or bleeding. Side Confirmed: RIGHT Indication: Surgical Anesthesia Specifically requested for management of pain by: Patient Condition Vital Signs Vital Signs Date Time Temp Pulse Resp B/P (MAP) Pulse Ox O2 Delivery O2 Flow Rate FiO2 08/10/16 09:03 97.8 74 16 146/68 98 Room Air Patient Condition: Awake Procedure Prepartation: Chlorhexidine Position: Supine Needle (s) Size: 22g 2" Technique: Injection through needle, Nerve Stimulation Motor response or parethesia o: good motor response of deltoid and biceps mA: 0.4 Depth (cm): 2 Sedation Given: Midazolam Dose (mg/mcg): 2 Injectate: ropivacaine Concentration %: 0.5 Volume (ml): 30 Epinephrine used: No Narrative Injection was made incrementally with constant monitoring. Blood Aspirated: No Pain on injection noted: No Normal Resistance on injection: Yes Events Events: None:easy well tolerated Sucess: Complete Patient Conditon Post Peripheral Nerve Block Post Peripheral Nerve Block Vital Signs: Blood Pressure: Systolic Diastolic Heart Rate Blood Pressure Systolic: 146 Blood Pressure Diastolic: 68 Pulse Rate (adult): 74 AALIYAH PERKINS CRNA Aug 10, 2016 11:58
[2016-08-10] MEDS ORDERED: morphine INJ 10 MG/ML 1ML (SYR OR VIAL) IVP PRN (12:30)
[2016-08-10] MEDS ORDERED: ONDANSETRON 4 MG/2 ML (SDV) Z0FRAN IVP PRN (12:30)
[2016-08-10 13:10] VITALS: BP 151/75
[2016-08-10 13:40] VITALS: BP 149/78
[2016-08-10 14:10] VITALS: BP 143/69
--- NOTE | 2016-08-10 14:44 | OPERATIVE REPORT ---
PROCEDURE PHYSICIAN: LAINE BUCKLEY DATE OF PROCEDURE: 08/10/2016 PREOPERATIVE DIAGNOSES: 1. Right rotator cuff tear. 2. Right shoulder SLAP tear. POSTOPERATIVE DIAGNOSIS: 1. Right rotator cuff tear. 2. Right shoulder SLAP tear. 3. Right glenoid chondromalacia. PROCEDURE: 1. Right shoulder arthroscopic biceps tenotomy. 2. Right shoulder arthroscopic glenoid chondroplasty. 3. Right shoulder arthroscopic acromioplasty. 4. Right shoulder open rotator cuff repair. SURGEON: James. EVALUATOR: None. ANESTHESIA: General endotracheal plus interscalene nerve block by Shelly Campo CRNA. ESTIMATED BLOOD LOSS: Minimal. DRAINS: None. COMPLICATIONS: None. POSTOPERATIVE PLAN: Passive range of motion with sling wear for 4 weeks. The patient transported to the recovery room, awake, in stable condition. STATEMENT OF MEDICAL NECESSITY: The patient is a 71-year-old female with complaints of right shoulder pain, worse with overhead activities. She had undergone treatment with injections, rest, activity modifications, and home exercise program without relief and due to functional impairment and failure to improve with conservative measures, the patient elected to proceed with surgical intervention. An MRI revealed a near full thickness supraspinatus tear as well. Examination under anesthesia revealed forward elevation of 170 degrees, external rotation 90 degrees and internal rotation 80 degrees. Arthroscopic findings demonstrated a 75% thickness supraspinatus tear at the midportion of its insertion. There was a type II SLAP tear. There is grade 3 chondral flap over the inferior aspect of the glenoid in a 5 x 8 area. No chondromalacia was noted on the humeral head. The remainder of the rotator cuff was intact. The remainder of the labrum was intact. The subacromial space demonstrated moderate bursitis with sloping of anterolateral acromion. PROCEDURE: After risks and benefits of procedure were discussed and questions were answered an informed consent was signed and placed on chart. The operative site was confirmed in the preoperative holding area and initialed by the surgeon. The patient was then transported to the operating room and after adequate levels of general endotracheal anesthetic obtained, a timeout was called confirming the operative site. Examination under anesthesia was performed with the above findings noted. The right shoulder aperture were prepped and draped in the usual sterile fashion. The right shoulder was injected with 20 mL of fluid as was the subacromial space. A standard posterior portal was placed. Under direct visualization anterior portal was created in the interval between biceps, subscapularis and glenoid. Diagnostic arthroscopies was carried out. The biceps anchor was released and the stump was debrided with a shaver. The chondromalacia of the glenoid was debrided back to a stable edge. This was carefully probed and no further tearing was noted. The scope was then redirected into the subacromial space and a lateral portal was created. A bursectomy was performed and the acromion was planed to a flat type I acromion. The lateral portal was then extended. The deltoid was split in line with its fibers leaving attached to the acromion. A bleeding bony bed was prepared just off the articular surface. The supraspinatus tear was then completed and freshened. This was then repaired with a single corkscrew anchor using a modified Jordan-Roddy repair. Excellent repair was obtained with no undue tension was noted with the arm at the side. The wound was copiously irrigated. The deltoid was repaired in xbzb-[id number]-scem fashion using number 2 FiberWire in [id number] interrupted fashion. The wound was further irrigated. 2-0 Vicryl was used to reapproximate subcutaneous tissue. The skin was closed with 4-0 nylon in running, alternating horizontal mattress fashion. The portal sites were closed with 4-0 nylon in a simple interrupted fashion. Soft dressing and sling were applied. The patient was transported to the recovery room, awake, in stable condition. Job ID: [id number] Dictated Date: 08/10/2016 12:16:35 Thread Roller Date: 08/10/2016 14:33:54 / safia
--- OUTSIDE RECORDS SUMMARY | 2016-08-14 04:43 | XMS REPORT | Continuity of Care Document ---
Author Author [facility] Organization [facility] Address Unknown Phone Unavailable Allergies Active Description Code Type Severity Reaction Onset Reported/Identified Relationship to Patient Clinical Status Yes No Known Drug Allergies [id number] Drug Allergy Unknown N/ A 07/13/2013 Yes erythromycin base [id number] Drug Allergy Severe HEART PALPITATI 08/04/2016 Medications Problems Date Dx Coded Attending Type Code Diagnosis Diagnosed By 07/17/2013 KILEY CORDERO MD Ot 211.1 BENIGN NEOPLASM STOMACH 07/17/2013 KILEY CORDERO MD Ot 272.4 HYPERLIPIDEMIA NEC/NOS 07/17/2013 KILEY CORDERO MD Ot 282.40 THALASSEMIA, UNSPECIFIED 07/17/2013 KILEY CORDERO MD Ot 530.81 ESOPHAGEAL REFLUX 07/17/2013 KILEY CORDERO MD Ot 553.3 DIAPHRAGMATIC HERNIA 07/17/2013 KILEY CORDERO MD Ot 577.0 ACUTE PANCREATITIS 10/09/2015 LAINE BUCKLEY MD Ot M19.011 PRIMARY OSTEOARTHRITIS, RIGHT SHOULDER 10/09/2015 LAINE BUCKLEY MD Ot M75.111 INCOMPLETE ROTATR-CUFF TEAR/RUPTR OF R S 10/09/2015 LAINE BUCKLEY MD Ot M75.81 OTHER SHOULDER LESIONS, RIGHT SHOULDER 10/09/2015 LAINE BUCKLEY MD Ot M19.011 PRIMARY OSTEOARTHRITIS, RIGHT SHOULDER 10/09/2015 LAINE BUCKLEY MD Ot M75.111 INCOMPLETE ROTATR-CUFF TEAR/RUPTR OF R S 10/09/2015 LAINE BUCKLEY MD Ot M75.81 OTHER SHOULDER LESIONS, RIGHT SHOULDER 10/30/2015 LAINE BUCKLEY MD Ot M19.011 PRIMARY OSTEOARTHRITIS, RIGHT SHOULDER 10/30/2015 LAINE BUCKLEY MD Ot M75.111 INCOMPLETE ROTATR-CUFF TEAR/RUPTR OF R S 10/30/2015 LAINE BUCKLEY MD Ot M75.81 OTHER SHOULDER LESIONS, RIGHT SHOULDER 11/12/2015 LAINE BUCKLEY MD Ot M19.011 PRIMARY OSTEOARTHRITIS, RIGHT SHOULDER 11/12/2015 LAINE BUCKLEY MD Ot M75.111 INCOMPLETE ROTATR-CUFF TEAR/RUPTR OF R S 11/12/2015 LAINE BUCKLEY MD Ot M75.81 OTHER SHOULDER LESIONS, RIGHT SHOULDER 05/12/2016 LAINE BUCKLEY MD Ot M19.011 PRIMARY OSTEOARTHRITIS, RIGHT SHOULDER 05/12/2016 LAINE BUCKLEY MD Ot M75.111 INCOMPLETE ROTATR-CUFF TEAR/RUPTR OF R S 05/12/2016 LAIEN BUCKLEY MD Ot M75.81 OTHER SHOULDER LESIONS, RIGHT SHOULDER 05/12/2016 STEPHANIA LONG HOOP CUTTER Ot Z78.0 ASYMPTOMATIC MENOPAUSAL STATE 05/12/2016 STEPHANIA LONG HOOP CUTTER Ot M85.811 OTH DISRD OF BONE DENSITY AND STRUCTURE, 05/12/2016 STEPHANIA LONG HOOP CUTTER Ot Z13.820 ENCOUNTER FOR SCREENING FOR OSTEOPOROSIS 05/12/2016 STEPHANIA LONG HOOP CUTTER Ot Z78.0 ASYMPTOMATIC MENOPAUSAL STATE 05/13/2016 STEPHANIA LONG HOOP CUTTER Ot M85.811 OTH DISRD OF BONE DENSITY AND STRUCTURE, 05/13/2016 STEPHANIA LONG HOOP CUTTER Ot Z13.820 ENCOUNTER FOR SCREENING FOR OSTEOPOROSIS 05/13/2016 STEPHANIA LONG HOOP CUTTER Ot Z78.0 ASYMPTOMATIC MENOPAUSAL STATE 06/08/2016 STEPHANIA LONG HOOP CUTTER Ot M85.811 OTH DISRD OF BONE DENSITY AND STRUCTURE, 06/08/2016 STEPHANIA LONG HOOP CUTTER Ot Z13.820 ENCOUNTER FOR SCREENING FOR OSTEOPOROSIS 06/08/2016 STEPHANIA LONG HOOP CUTTER Ot Z78.0 ASYMPTOMATIC MENOPAUSAL STATE 06/10/2016 STEPHEN ADAM MD Ot I25.10 ATHSCL HEART DISEASE OF [place] CORONARY 06/10/2016 STEPHEN ADAM MD Ot I44.7 LEFT BUNDLE-BRANCH BLOCK, UNSPECIFIED 06/10/2016 STEPHEN ADAM MD Ot M54.9 DORSALGIA, UNSPECIFIED 06/10/2016 STEPHEN ADAM MD Ot M75.101 UNSP ROTATR-CUFF TEAR/RUPTR OF RIGHT [place]AV[place] 06/10/2016 STEPHEN ADAM MD, Ot R07.89 OTHER CHEST PAIN 06/10/2016 STEPHEN ADAM MD, Ot Z79.899 OTHER RESAW FEEDER (CURRENT) DRUG THERAPY 06/30/2016 STEPHEN ADAM MD, Ot I25.10 ATHSCL HEART DISEASE OF [place] CORONARY 06/30/2016 STEPHEN ADAM MD, Ot I44.7 LEFT BUNDLE-BRANCH BLOCK, UNSPECIFIED 06/30/2016 STEPHEN ADAM MD, Ot M54.9 DORSALGIA, UNSPECIFIED 06/30/2016 STEPHEN ADAM MD, Ot M75.101 UNSP ROTATR-CUFF TEAR/RUPTR OF RIGHT [place]AV[place] 06/30/2016 STEPHEN ADAM MD, Ot R07.89 OTHER CHEST PAIN 06/30/2016 STEPHEN ADAM MD, Ot Z79.899 OTHER RESAW FEEDER (CURRENT) DRUG THERAPY 08/04/2016 LAINE BUCKLEY MD, Ot M75.101 UNSP ROTATR-CUFF TEAR/RUPTR OF RIGHT [place]AV[place] 08/04/2016 LAINE BUCKLEY MD, Ot Z01.812 ENCOUNTER FOR PREPROCEDURAL LABORATORY E 08/04/2016 LAINE BUCKLEY MD, Ot Z11.2 ENCOUNTER FOR SCREENING FOR OTHER BACTER Procedures Code Description Performed By Performed On 43.41 ENDO EXCISION/DEST OF LESION OR TISSUE O 07/16/2013 Results Test Result Range Complete blood count (CBC) with automated white blood cell (WBC) differential - 06/10/16 11:55 Blood leukocytes automated count (number/volume) 7.5 10*3/ uL 4.3-11.0 Blood erythrocytes automated count (number/volume) 4.70 10*6 /uL 4.35-5.85 Venous blood hemoglobin measurement (mass/volume) 10.2 g/dL 11.5-16.0 Blood hematocrit (volume fraction) 31 % 35-52 Automated erythrocyte mean corpuscular volume 66 [foz_us] 80-99 Automated erythrocyte mean corpuscular hemoglobin (mass per erythrocyte) 22 pg 25-34 Automated erythrocyte mean corpuscular hemoglobin concentration measurement ( mass/volume) 33 g/dL 32-36 Automated erythrocyte distribution width ratio 16.6 % 10.0-14.5 Automated blood platelet count (count/volume) 309 10*3/uL 130-400 Automated blood platelet mean volume measurement 10.6 [foz_ us] 7.4-10.4 Automated blood neutrophils/100 leukocytes 76 % 42-75 Automated blood lymphocytes/100 leukocytes 19 % 12-44 Blood monocytes/100 leukocytes 4 % 0-12 Automated blood eosinophils/100 leukocytes 1 % 0-10 Automated blood basophils/100 leukocytes 0 % 0-10 Blood neutrophils automated count (number/volume) 5.7 10*3 1.8-7.8 Blood lymphocytes automated count (number/volume) 1.4 10*3 1.0-4.0 Blood monocytes automated count (number/volume) 0.3 10*3 0.0-1.0 Automated eosinophil count 0.0 10*3/uL 0.0-0.3 Automated blood basophil count (count/volume) 0.0 10*3/uL 0.0-0.1 Comprehensive metabolic panel - 06/10/16 11:55 Serum or plasma sodium measurement (moles/volume) 141 mmol/ L 135-145 Serum or plasma potassium measurement (moles/volume) 3.8 mmol/L 3.6-5.0 Serum or plasma chloride measurement (moles/volume) 108 mmol /L 98-107 Carbon dioxide 23 mmol/L 21-32 Serum or plasma anion gap determination (moles/volume) 10 mmol/L 5-14 Serum or plasma urea nitrogen measurement (mass/volume) 10 mg/dL 7-18 Serum or plasma creatinine measurement (mass/volume) 0.71 mg /dL 0.60-1.30 Serum or plasma urea nitrogen/creatinine mass ratio 14 NRG Serum or plasma creatinine measurement with calculation of estimated glomerular filtration rate > NRG Serum or plasma glucose measurement (mass/volume) 102 mg/dL 70-105 Serum or plasma calcium measurement (mass/volume) 8.3 mg/dL 8.5-10.1 Serum or plasma total bilirubin measurement (mass/volume) 0.7 mg/dL 0.1-1.0 Serum or plasma alkaline phosphatase measurement (enzymatic activity/volume) 69 U/L 40-136 Serum or plasma aspartate aminotransferase measurement (enzymatic activity/ volume) 20 U/L 5-34 Serum or plasma alanine aminotransferase measurement (enzymatic activity/volume ) 19 U/L 0-55 Serum or plasma protein measurement (mass/volume) 6.7 g/dL 6.4-8.2 Serum or plasma albumin measurement (mass/volume) 4.2 g/dL 3.2-4.5 Magnesium - 06/10/16 11:55 Magnesium 1.9 mg/dL 1.8-2.4 Serum or plasma troponin i.cardiac measurement (mass/volume) - 06/10/16 11:55 Serum or plasma troponin i.cardiac measurement (mass/volume) < ng/mL <0.30 Myoglobin, serum - 06/10/16 11:55 Myoglobin, serum 37.2 ng/mL 10.0-92.0 PT panel in platelet poor plasma by coagulation assay - 06/10/16 12:26 Prothrombin time (PT) in platelet poor plasma by coagulation assay 14.2 s 12.2-14.7 INR in platelet poor plasma or blood by coagulation assay 1.1 0.8-1.4 Activated partial thromboplastin time (aPTT) in platelet poor plasma bycoagulation assay - 06/10/16 12:26 Activated partial thromboplastin time (aPTT) in platelet poor plasma bycoagulation assay 34 s 24-35 Fibrin D-dimer FEU measurement in platelet poor plasma (mass/volume) - 12:26 Fibrin D-dimer FEU measurement in platelet poor plasma (mass/volume) 0.53 ug/mL 0.00-0.49 Methicillin resistant Staphylococcus aureus (MRSA) screening culture - 12:10 Methicillin resistant Staphylococcus aureus (MRSA) screening culture NEG NR Complete blood count (CBC) with automated white blood cell (WBC) differential - 08/04/16 12:15 Blood leukocytes automated count (number/volume) 5.4 10*3/ uL 4.3-11.0 Blood erythrocytes automated count (number/volume) 5.01 10*6 /uL 4.35-5.85 Venous blood hemoglobin measurement (mass/volume) 10.7 g/dL 11.5-16.0 Blood hematocrit (volume fraction) 33 % 35-52 Automated erythrocyte mean corpuscular volume 66 [foz_us] 80-99 Automated erythrocyte mean corpuscular hemoglobin (mass per erythrocyte) 21 pg 25-34 Automated erythrocyte mean corpuscular hemoglobin concentration measurement ( mass/volume) 33 g/dL 32-36 Automated erythrocyte distribution width ratio 16.3 % 10.0-14.5 Automated blood platelet count (count/volume) 367 10*3/uL 130-400 Automated blood platelet mean volume measurement 11.8 [foz_ us] 7.4-10.4 Automated blood neutrophils/100 leukocytes 58 % 42-75 Automated blood lymphocytes/100 leukocytes 31 % 12-44 Blood monocytes/100 leukocytes 8 % 0-12 Automated blood eosinophils/100 leukocytes 3 % 0-10 Automated blood basophils/100 leukocytes 1 % 0-10 Blood neutrophils automated count (number/volume) 3.2 10*3 1.8-7.8 Blood lymphocytes automated count (number/volume) 1.7 10*3 1.0-4.0 Blood monocytes automated count (number/volume) 0.4 10*3 0.0-1.0 Automated eosinophil count 0.2 10*3/uL 0.0-0.3 Automated blood basophil count (count/volume) 0.0 10*3/uL 0.0-0.1 Encounters ACCT No. Visit Date/Time Discharge Status Pt. Type Provider Facility Loc./Unit Complaint [id number] 08/04/2016 11:37:00 2016 12:46:00 DIS Outpatient LAINE BUCKLEY MD [facility] PREOP RIGHT TORN ROTATOR CUFF [id number] 06/10/2016 11:42:00 2016 17:10:00 DIS Outpatient STEPHEN ADAM MD [facility] CATH EKG CHANGES [id number] 07/13/2013 19:49:00 2013 14:45:00 DIS Inpatient KILEY CORDERO MD [facility] 4TH ACUTE PANCREATITIS [id number] 08/10/2016 10:45:00 PEN Preadmit LAINE BUCKLEY MD [facility] SDC RIGHT TORN ROTATOR CUFF [id number] 05/12/2016 09:04:00 ACT Outpatient STEPHANIA LONG [facility] RAD OSTEOPENIA [id number] 10/08/2015 09:10:00 ACT Outpatient LAINE BUCKLEY MD [facility] RAD SHOULDER PAIN JOINT RT
== END 2016-08-10 14:40 | disposition home or self-care (01) ==
LOC: DELPENDDIS → SDC 08:20
PROVIDERS: ATTEND Orthopaedic Surgery
DX: M75.101 Unspecified rotator cuff tear or rupture of right shoulder, not specified as traumatic (principal); S43.431A Superior glenoid labrum lesion of right shoulder, initial encounter; M94.211 Chondromalacia, right shoulder

== ENCOUNTER → 2016-11-10 | Outpatient (RCR) | payer MEDICARE, OTHER ==
[~2016-11-10] MED LIST changes: +OXYC-197 PO
== END | disposition home or self-care (01) ==
DX: M25.511 Pain in right shoulder (principal)

== ENCOUNTER 2016-11-15 09:16 | Outpatient (RCR) | payer MEDICARE, OTHER | END 2016-12-13 14:37 | disposition home or self-care (01) | PROVIDERS: ATTEND Orthopaedic Surgery | DX: M25.511 Pain in right shoulder (principal) ==

== ENCOUNTER → 2016-11-16 | Outpatient (CLI) | payer MEDICARE, OTHER ==
[~2016-11-16] VITALS: Ht 157.5 cm; Wt 77.7 kg
[~2016-11-16] MED LIST changes: +DENOSUMAB 60 MG/1 ML (PROLIA) SQ SCH
[2016-11-16 13:35] VITALS: BP 142/75
== END ==
LOC: SDC 12:38
PROVIDERS: ATTEND Nurse Practitioner Family
DX: M81.0 Age-related osteoporosis without current pathological fracture (principal)
CPT/HCPCS: 96372

== ENCOUNTER → 2017-05-24 | Outpatient (CLI) | payer MEDICARE, OTHER ==
[~2017-05-24] VITALS: Ht 157.5 cm; Wt 77.7 kg
[~2017-05-24] MED LIST changes: +DENOSUMAB 60 MG/1 ML (PROLIA) SQ ONE; -DENOSUMAB 60 MG/1 ML (PROLIA) SQ SCH
[2017-05-24 12:43] VITALS: BP 146/67
== END ==
LOC: SDC 12:38
PROVIDERS: ATTEND Nurse Practitioner Family
DX: M81.0 Age-related osteoporosis without current pathological fracture (principal)
CPT/HCPCS: 96372

== ENCOUNTER → 2017-07-25 | Outpatient (CLI) | payer MEDICARE, OTHER ==
[~2017-07-25] MED LIST changes: -DENOSUMAB 60 MG/1 ML (PROLIA) SQ ONE
--- NOTE | 2017-07-25 11:51 | Diagnostic Imaging Report ---
INDICATION: Low back pain with radiation down the left leg. COMPARISON: None. FINDINGS: Frontal and lateral radiographic views of the lumbar spine were obtained. There is transitional lumbosacral anatomy with partial sacralization of L5 on the left. Static alignment is maintained. There is no significant wendy- or retro-listhesis. There is no evidence of jumped facets. Vertebral body heights are maintained. There is no evidence of acute fracture. Mild multilevel degenerative changes are noted. Surrounding soft tissue structures are unremarkable. Included small bowel loops are nondistended. IMPRESSION: 1. No acute fracture or dislocation in the lumbar spine. 2. Transitional lumbosacral anatomy with partial sacralization of L5 on the left. Dictated by: Dictated on workstation # [id number]
== END ==
LOC: RAD 09:58
PROVIDERS: ATTEND Nurse Practitioner Family
DX: M43.27 Fusion of spine, lumbosacral region (principal)
CPT/HCPCS: 72100

== ENCOUNTER 2017-09-20 10:21 | Outpatient (RCR) | payer MEDICARE, OTHER | END 2017-09-21 | disposition home or self-care (01) | LOC: CR3 10:21 | PROVIDERS: ATTEND Family Medicine | DX: Z29.8 Encounter for other specified prophylactic measures (principal) ==

== ENCOUNTER 2017-10-11 10:47 | Outpatient (RCR) | payer MEDICARE, OTHER | END 2017-10-21 | disposition home or self-care (01) | LOC: CR3 10:47 | PROVIDERS: ATTEND Family Medicine | DX: Z29.8 Encounter for other specified prophylactic measures (principal) ==

== ENCOUNTER 2017-11-16 09:53 | Outpatient (RCR) | payer MEDICARE, OTHER | END 2017-11-19 | disposition home or self-care (01) | PROVIDERS: ATTEND Family Medicine | DX: M51.16 Intervertebral disc disorders with radiculopathy, lumbar region (principal) ==

== ENCOUNTER → 2017-11-27 | Outpatient (CLI) | payer MEDICARE, OTHER ==
[~2017-11-27] VITALS: Ht 157.5 cm; Wt 77.7 kg
[~2017-11-27] MED LIST changes: +DENOSUMAB 60 MG/1 ML (PROLIA) SQ ONE
[2017-11-27 13:10] LABS: MEAN PLATELET VOLUME 10.8 FL (7.4-10.4); RED BLOOD COUNT 4.59 10^6/uL (4.35-5.85); RED CELL DISTRIBUTION WIDTH 15.9 % (10.0-14.5)
[2017-11-27 13:22] VITALS: BP 138/65
[2017-11-27 13:32] LABS: BUN/CREATININE RATIO 20; CALCIUM 9.3 MG/DL (8.5-10.1); CARBON DIOXIDE 26 MMOL/L (21-32); CHLORIDE 104 MMOL/L (98-107); CREATININE SERUM 0.76 MG/DL (0.60-1.30); GFR ESTIMATED > 60; GLUCOSE 101 MG/DL (70-105); POTASSIUM 3.9 MMOL/L (3.6-5.0); SODIUM 137 MMOL/L (135-145)
== END ==
LOC: SDC 12:41
PROVIDERS: ATTEND Family Medicine
DX: D64.9 Anemia, unspecified (principal); M81.0 Age-related osteoporosis without current pathological fracture
CPT/HCPCS: 36415; 80048; 82607; 82728; 83540; 85027; 96372

== ENCOUNTER 2018-01-04 11:12 | Outpatient (RCR) | payer MEDICARE, OTHER ==
[~2018-01-04 11:12] MED LIST changes: -DENOSUMAB 60 MG/1 ML (PROLIA) SQ ONE
== END 2018-01-04 13:51 | disposition home or self-care (01) ==
PROVIDERS: ATTEND Family Medicine
DX: M51.16 Intervertebral disc disorders with radiculopathy, lumbar region (principal)

== ENCOUNTER 2018-01-25 06:00 | Outpatient (RCR) | payer MEDICARE, OTHER ==
[~2018-01-25 06:00] MED LIST changes: -OXYC-197 PO; +OXYC1TAB87 PO
== END 2018-02-17 | disposition home or self-care (01) ==
LOC: CR3 06:00
PROVIDERS: ATTEND Family Medicine
DX: Z29.8 Encounter for other specified prophylactic measures (principal)

== ENCOUNTER → 2018-03-23 | Outpatient (CLI) | payer MEDICARE, OTHER ==
--- NOTE | 2018-03-23 11:19 | Diagnostic Imaging Report ---
INDICATION: Dyspnea and chest congestion. PA and lateral chest obtained at 1128 AM. Heart and mediastinal silhouette are normal in appearance. The lungs show no consolidation. There is some linear scarring or atelectasis in the left mid to lower lung field. There is no pleural fluid or pneumothorax. IMPRESSION: Small area of linear scarring or atelectasis in left mid to lower lung field. Otherwise unremarkable chest. Dictated by: Dictated on workstation # [id number]
== END ==
LOC: RAD 10:56
PROVIDERS: ATTEND Nurse Practitioner Family
DX: R06.00 Dyspnea, unspecified (principal); R09.89 Other specified symptoms and signs involving the circulatory and respiratory systems
CPT/HCPCS: 71046

== ENCOUNTER 2018-03-24 09:16 | Outpatient (CLI) | payer MEDICARE, OTHER ==
[~2018-03-24] VITALS: Ht 157.5 cm; Wt 83.5 kg
[2018-03-24] MEDS ORDERED: LIDOCAINE 1% INJ 20 ML 20 ML VIAL INJ NR (09:45)
[2018-03-24] MEDS ORDERED: cefTRIAXone 1,000 MG/2.86 ml vial (IM ONLY) IM NR (09:45)
[2018-03-24 10:05] VITALS: BP 157/76
== END 2018-03-24 10:05 | disposition home or self-care (01) ==
LOC: SDC 09:16
PROVIDERS: ATTEND Nurse Practitioner Family
DX: R06.00 Dyspnea, unspecified (principal); R09.89 Other specified symptoms and signs involving the circulatory and respiratory systems
CPT/HCPCS: 96372

== ENCOUNTER 2018-05-09 10:35 | Outpatient (RCR) | payer MEDICARE, OTHER | END 2018-05-23 | disposition home or self-care (01) | LOC: CR3 10:35 | PROVIDERS: ATTEND Family Medicine | DX: Z29.8 Encounter for other specified prophylactic measures (principal) ==

== ENCOUNTER → 2018-06-01 | Outpatient (CLI) | payer MEDICARE, OTHER ==
[~2018-06-01] VITALS: Ht 157.5 cm; Wt 83.5 kg
[~2018-06-01] MED LIST changes: +DENOSUMAB 60 MG/1 ML (PROLIA) SQ SCH
[2018-06-01 13:00] VITALS: BP 131/59
[2018-06-01 13:56] LABS: BASOPHILS % (AUTO) 0 % (0-10); EOSINOPHILS # (AUTO) 0.1 10^3/uL (0.0-0.3); EOSINOPHILS % (AUTO) 2 % (0-10); HEMATOCRIT 31 % (35-52); HEMOGLOBIN 10.2 G/DL (11.5-16.0); LYMPHOCYTES # (AUTO) 1.5 X 10^3 (1.0-4.0); LYMPHOCYTES % (AUTO) 23 % (12-44); MEAN CORPUSCULAR HEMOGLOBIN 22 PG (25-34); MEAN CORPUSCULAR HGB CONC 33 G/DL (32-36); MEAN CORPUSCULAR VOLUME 67 FL (80-99); MEAN PLATELET VOLUME 11.3 FL (7.4-10.4); MONOCYTES # (AUTO) 0.4 X 10^3 (0.0-1.0); MONOCYTES % (AUTO) 7 % (0-12); NEUTROPHILS # (AUTO) 4.4 X 10^3 (1.8-7.8); NEUTROPHILS % (AUTO) 68 % (42-75); PLATELET COUNT 330 10^3/uL (130-400); RED BLOOD COUNT 4.72 10^6/uL (4.35-5.85); RED CELL DISTRIBUTION WIDTH 15.8 % (10.0-14.5); WHITE BLOOD COUNT 6.4 10^3/uL (4.3-11.0)
[2018-06-01 14:22] LABS: BUN/CREATININE RATIO 21; CALCIUM 9.1 MG/DL (8.5-10.1); CARBON DIOXIDE 22 MMOL/L (21-32); CHLORIDE 105 MMOL/L (98-107); CREATININE SERUM 0.78 MG/DL (0.60-1.30); GFR ESTIMATED > 60; GLUCOSE 113 MG/DL (70-105); POTASSIUM 3.8 MMOL/L (3.6-5.0); SODIUM 137 MMOL/L (135-145)
== END ==
LOC: SDC 12:43
PROVIDERS: ATTEND Family Medicine
DX: M81.0 Age-related osteoporosis without current pathological fracture (principal)
CPT/HCPCS: 36415; 80048; 85025; 96372

== ENCOUNTER 2018-06-22 09:57 | Emergency (ER) | payer MEDICARE, OTHER ==
[~2018-06-22] VITALS: Ht 157.5 cm; Wt 81.6 kg
[~2018-06-22 09:57] MED LIST changes: -DENOSUMAB 60 MG/1 ML (PROLIA) SQ SCH
[2018-06-22 10:18] LABS: BASOPHILS % (AUTO) 1 % (0-10); EOSINOPHILS # (AUTO) 0.2 10^3/uL (0.0-0.3); EOSINOPHILS % (AUTO) 5 % (0-10); HEMATOCRIT 33 % (35-52); HEMOGLOBIN 10.6 G/DL (11.5-16.0); LYMPHOCYTES # (AUTO) 2.1 X 10^3 (1.0-4.0); LYMPHOCYTES % (AUTO) 40 % (12-44); MEAN CORPUSCULAR HEMOGLOBIN 22 PG (25-34); MEAN CORPUSCULAR HGB CONC 33 G/DL (32-36); MEAN CORPUSCULAR VOLUME 66 FL (80-99); MEAN PLATELET VOLUME 10.3 FL (7.4-10.4); MONOCYTES # (AUTO) 0.4 X 10^3 (0.0-1.0); MONOCYTES % (AUTO) 8 % (0-12); NEUTROPHILS # (AUTO) 2.5 X 10^3 (1.8-7.8); NEUTROPHILS % (AUTO) 47 % (42-75); PLATELET COUNT 308 10^3/uL (130-400); WHITE BLOOD COUNT 5.2 10^3/uL (4.3-11.0)
[2018-06-22 10:39] LABS: FIBRIN DEGRADATION PRODUCTS 0.82 UG/ML (0.00-0.49); PROTHROMBIN TIME PATIENT 12.9 SEC (12.2-14.7)
[2018-06-22 10:43] LABS: ALANINE AMINOTRANSFERASE 17 U/L (0-55); ALBUMIN 4.5 GM/DL (3.2-4.5); ALKALINE PHOSPHATASE 44 U/L (40-136); BILIRUBIN,TOTAL 0.9 MG/DL (0.1-1.0); BUN/CREATININE RATIO 18; CALCIUM 9.1 MG/DL (8.5-10.1); CARBON DIOXIDE 22 MMOL/L (21-32); CHLORIDE 106 MMOL/L (98-107); CREATININE SERUM 0.77 MG/DL (0.60-1.30); GFR ESTIMATED > 60; GLUCOSE 107 MG/DL (70-105); POTASSIUM 3.7 MMOL/L (3.6-5.0); SODIUM 141 MMOL/L (135-145); TOTAL PROTEIN 7.3 GM/DL (6.4-8.2)
--- NOTE | 2018-06-22 10:59 | Diagnostic Imaging Report ---
INDICATION: Difficulty swallowing left facial numbness. COMPARISON: 03/23/2018. FINDINGS: The lungs are clear. The heart and vessels are normal. There is no effusion or pneumothorax. IMPRESSION: No acute appearing abnormality. Dictated by: Dictated on workstation # [id number]
--- NOTE | 2018-06-22 11:34 | Diagnostic Imaging Report ---
CLINICAL INDICATION: Patient with left-sided facial numbness. EXAM: Axial CT scan of the brain performed without IV contrast. COMPARISON: None. FINDINGS: There is no evidence of acute cerebral infarct, intracranial hemorrhage, or gross mass effect. The brain parenchymal volume appears appropriate for patient's age. There is a small area of chronic cerebral infarct involving the right external capsule/right basal ganglia region. There is a small area of low attenuation involving the left frontal lobe periventricular region and anterior internal capsule region. There is also a small area of low attenuation involving the left caudate head. These findings may be related to chronic ischemic changes. There are other focal areas of low-attenuation white matter changes involving both cerebral hemispheres, likely representing chronic small vessel ischemic disease. There is normal [place]-white matter distinction. There is no significant midline shift or herniation. There is no evidence of hydrocephalus. The basal cisterns are unremarkable. The skull, extracranial soft tissue, and orbits are unremarkable. The paranasal sinuses are unremarkable. Temporal bones show no significant abnormality. IMPRESSION: 1: There is no definite CT evidence of interval acute cerebral infarction, intracranial hemorrhage, or mass seen. Given the diffuse low-attenuation changes throughout the brain parenchyma which can obscure more subtle findings, if there is clinical concern for acute cerebral infarction, MRI of the brain would better evaluate. 2: There are small areas of suspected chronic infarcts involving the bilateral frontal lobes, as described above. 3: Chronic small vessel ischemic disease. Results of this report were relayed to nurse Alex working with Dr. Kirk Briggs, via the telephone on 06/22/2018 at 1105 hours. Dictated by: Dictated on workstation # [id number]
[2018-06-22 12:27] LABS: BILIRUBIN,URINE NEGATIVE (NEGATIVE); CLARITY,URINE CLEAR; COLOR,URINE YELLOW; GLUCOSE, URINE (UA) NEGATIVE (NEGATIVE); KETONES,URINE NEGATIVE (NEGATIVE); LEUKOCYTE ESTERASE ,URINE 2+ (NEGATIVE); NITRITE,URINE NEGATIVE (NEGATIVE); PH,URINE 7 (5-9); PROTEIN,URINE NEGATIVE (NEGATIVE); UROBILINOGEN,URINE NORMAL (NORMAL)
[2018-06-22 12:36] LABS: BACTERIA,URINE NEGATIVE /HPF; WBC,URINE 0-2 /HPF
--- NOTE | 2018-06-22 14:42 | ED Neurological Problem ---
General Chief Complaint: Neuro-Stroke Like Symptoms Stated Complaint: LEFT SIDED FACIAL NUMBNESS;TROUBLE SWALLOWING Nursing Triage Note: PT PRESENTS TO ER WITH COMPLAINT OF LEFT SIDED FACIAL NUMBNESS, LEFT LEF WEAKNESS, AND DIFFICULTY SWALLOWING. PT STATES SYMPTOMS STARTED LAST NIGHT AROUND 930PM. Nursing Sepsis Screen: No Definite Risk Source: patient Exam Limitations: no limitations History of Present Illness Date Seen by Provider: Jun 22, 2018 Time Seen by Provider: 10:05 Initial Comments This 73-year-old woman presents to the emergency room accompanied by her family with complaints of left-sided facial droop, paresthesia of the tongue, mild slurring of speech, and subtle weakness and numbness of the left extremities. Symptoms started around 21:30 last night. She noted some difficulty with swallowing last night but did not choke. She has been able to swallow this morning despite having paresthesias of her tongue and face. NIH stroke score performed by nursing staff was 1 for subtle slurring of speech. Her primary care provider is Dr. DAIGLE. Allergies and Home Medications Allergies Coded Allergies: erythromycin base (Verified Allergy, Severe, HEART PALPITATIONS, 08/04/16) Home Medications Pantoprazole Sodium 40 Mg Tablet.dr, 40 MG PO EVERY OTHER DAY, (Reported) Paroxetine HCl 10 Mg Tablet, 10 MG PO DAILY, (Reported) Patient Home Medication List Home Medication List Reviewed: Yes Review of Systems Review of Systems Constitutional: no symptoms reported Eyes: No Symptoms Reported Ears, Nose, Mouth, Throat: see HPI Respiratory: no symptoms reported Cardiovascular: no symptoms reported Gastrointestinal: no symptoms reported Genitourinary: no symptoms reported : No Musculoskeletal: no symptoms reported Skin: no symptoms reported Psychiatric/Neurological: See HPI Endocrine: No Symptoms Reported Hematologic/Lymphatic: No Symptoms Reported Past Cfrgkfu-Kkbtmz-Rlvqwf Hx Patient Social History Alcohol Use: Occasionally Uses Number of Drinks Today: AA Alcohol Beverage of Choice: Beer Recreational Drug Use: No Smoking Status: Never a Smoker Recent Foreign Travel: No Contact w/Someone Who Travel: No Recent Infectious Disease Expo: No Recent Hopitalizations: No Immunizations Up To Date Tetanus Booster (TDap): Unknown PED Vaccines UTD: No Date of Pneumonia Vaccine: Feb 19, 2010 Date of Influenza Vaccine: Mar 12, 2012 Seasonal Allergies Seasonal Allergies: No Past Medical History Surgeries: Yes (LEFT SHOULDER SCOPE, TRIGGER FINGER) Cardiac (angiography 2016, no obstructive disease), Orthopedic Respiratory: No Cardiac: Yes (BBB) Coronary Artery Disease (mild nonobstructive disease identified on angiography 2017), Palpitations Neurological: No : No Reproductive Disorders: No Female Reproductive Disorders: Denies Sexually Transmitted Disease: No HIV/AIDS: No Gastrointestinal: Yes Gastroesophageal Reflux Musculoskeletal: Yes (RIGHT SHOULDER TORN ROTATOR CUFF) Osteoporosis Endocrine: No HEENT: No Loss of Vision: Bilateral Hearing Impairment: Denies Cancer: No Psychosocial: Yes Anxiety, Depression Integumentary: No Blood Disorders: Yes (THALASSEMIA) Adverse Reaction/Blood Tranf: No (HAS HAD BLOOD WITH NO REACTION) Family Medical History Reviewed Nursing Family Hx Cancer 03 FATHER 03 MOTHER Cancer of colon 03 FATHER 03 MOTHER Malignant neoplasm of lung 09 BROTHER Psychotic disorder 09 BROTHER No Family History of: Abdominal aortic aneurysm Payam's disease Alcoholism Aphasia Cataract Chest pain Congenital heart disease Congestive heart failure Cystic fibrosis Dementia Dysphagia Family history: Allergy Family history: Alzheimer's disease Family history: Arthritis Family history: Asthma Family history: Breast disease Family history: Cardiovascular disease Family history: Coronary thrombosis Family history: Diabetes mellitus Family history: Gastrointestinal disease Family history: Glaucoma Family history: Hypertension Family history: Osteoporosis Family history: Thyroid disorder Headache Hearing loss Heart disease Hereditary disease History of - anemia History of - disorder History of - respiratory disease History of drug abuse Human immunodeficiency virus (HIV) seropositivity Hypercholesterolemia Infertile Kidney disease Myocardial infarction Parkinson's disease Prostate cancer Seizure disorder Stroke Tuberculosis Visual impairment Heart Disease Physical Exam Vital Signs Vital Signs - First Documented 06/22/18 10:00 Temp 97.1 Pulse 89 Resp 19 B/P (MAP) 177/88 (117) Pulse Ox 100 O2 Delivery Room Air Capillary Refill : Less Than 3 Seconds Height, Weight, BMI Height: 5'2.00" Weight: 180lbs. 0.0oz. [id number]; 31.3 BMI Method:Stated General Appearance: WD/WN, no apparent distress HEENT: PERRL/EOMI, normal ENT inspection Neck: normal inspection Respiratory: lungs clear, normal breath sounds, no respiratory distress, no accessory muscle use Cardiovascular: regular rate, rhythm, no edema, no murmur Gastrointestinal: non tender, soft Back: normal inspection Extremities: normal inspection, no pedal edema Neurologic/Psychiatric: alert, normal mood/affect, oriented x 3, motor weakness (very subtle weakness of the left diver pumper and left lower extremity. Sensation present but reduced in the left foot and left face) Crainal Nerves: normal hearing, PERRL, abnormal speech (subtle dysarthria) Coordination/Gait: normal finger to nose, normal gait Skin: normal color, warm/dry Stroke NIH Stroke Scale Assessment Level of Consciousness: 0=Alert (0), Level of Consciousness-Questions: 0= Answers both month/age (0), LOC Commands: 0=Performs both tasks (0), Visual [place]: 0=No visual loss (0), Facial Movement (Facial Paresis): 0=Normal symmetrical mnt (0), Motor Function-Arms Right: 0=No drift (0), Motor Function- Arms Left: 0=No drift (0), Motor Function-Legs Right: 0=No drift (0), Motor Function-Legs Left: 0=No drift (0), Limb Ataxia: 0=Absent (0), Sensory: 0=Normal :no loss (0), Best Language: 0=No aphasia (0), Dysarthria: 1=Mild to moderate loss (1), Extinction & Inattention: 0=No abnormality (0), Total: 1 Progress/Results/Core Measures Results/Orders Lab Results Laboratory Tests Test 06/22/18 10:12 06/22/18 10:13 06/22/18 12:25 Range/Units White Blood Count 5.2 4.3-11.0 10^3/uL Red Blood Count 4.92 4.35-5.85 10^6/uL Hemoglobin 10.6 L 11.5-16.0 G/DL Hematocrit 33 L 35-52 % Mean Corpuscular Volume 66 L 80-99 FL Mean Corpuscular Hemoglobin 22 L 25-34 PG Mean Corpuscular Hemoglobin Concent 33 32-36 G/DL Red Cell Distribution Width 16.0 H 10.0-14.5 % Platelet Count 308 130-400 10^3/uL Mean Platelet Volume 10.3 7.4-10.4 FL Neutrophils (%) (Auto) 47 42-75 % Lymphocytes (%) (Auto) 40 12-44 % Monocytes (%) (Auto) 8 0-12 % Eosinophils (%) (Auto) 5 0-10 % Basophils (%) (Auto) 1 0-10 % Neutrophils # (Auto) 2.5 1.8-7.8 X 10^3 Lymphocytes # (Auto) 2.1 1.0-4.0 X 10^3 Monocytes # (Auto) 0.4 0.0-1.0 X 10^3 Eosinophils # (Auto) 0.2 0.0-0.3 10^3/uL Basophils # (Auto) 0.0 0.0-0.1 10^3/uL Prothrombin Time 12.9 12.2-14.7 SEC INR Comment 1.0 0.8-1.4 Activated Partial Thromboplast Time 39 H 24-35 SEC D-Dimer 0.82 H 0.00-0.49 UG/ML Sodium Level 141 135-145 MMOL/L Potassium Level 3.7 3.6-5.0 MMOL/L Chloride Level 106 98-107 MMOL/L Carbon Dioxide Level 22 21-32 MMOL/L Anion Gap 13 5-14 MMOL/L Blood Urea Nitrogen 14 7-18 MG/DL Creatinine 0.77 0.60-1.30 MG/DL Estimat Glomerular Filtration Rate > 60 BUN/Creatinine Ratio 18 Glucose Level 107 H 70-105 MG/DL Calcium Level 9.1 8.5-10.1 MG/DL Corrected Calcium 8.7 8.5-10.1 MG/DL Total Bilirubin 0.9 0.1-1.0 MG/DL Aspartate Amino Transf (AST/SGOT) 19 5-34 U/L Alanine Aminotransferase (ALT/SGPT) 17 0-55 U/L Alkaline Phosphatase 44 40-136 U/L Troponin I < 0.028 <0.028 NG/ML Total Protein 7.3 6.4-8.2 GM/DL Albumin 4.5 3.2-4.5 GM/DL Glucometer 109 70-110 MG/DL Urine Color YELLOW Urine Clarity CLEAR Urine pH 7 5-9 Urine Specific [place] 1.005 L 1.016-1.022 Urine Protein NEGATIVE NEGATIVE Urine Glucose (UA) NEGATIVE NEGATIVE Urine Ketones NEGATIVE NEGATIVE Urine Nitrite NEGATIVE NEGATIVE Urine Bilirubin NEGATIVE NEGATIVE Urine Urobilinogen NORMAL NORMAL MG/DL Urine Leukocyte Esterase 2+ H NEGATIVE Urine RBC (Auto) NEGATIVE NEGATIVE Urine RBC NONE /HPF Urine WBC 0-2 /HPF Urine Squamous Epithelial Cells NONE /HPF Urine Crystals NONE /LPF Urine Bacteria NEGATIVE /HPF Urine Casts NONE /LPF Urine Mucus NEGATIVE /LPF Urine Culture Indicated NO My Orders Orders - KIRK BRIGGS MD Cbc With Automated Diff (06/22/18 10:11) Protime With Inr (06/22/18 10:11) Partial Thromboplastin Time (06/22/18 10:11) Comprehensive Metabolic Panel (06/22/18 10:11) Fibrin Degradation Products (06/22/18 10:11) Troponin I (06/22/18 10:11) Ua Culture If Indicated (06/22/18 10:11) Chest 1 View, Ap/Pa Only (06/22/18 10:11) Ekg Tracing (06/22/18 10:11) Nothing By Mouth (06/22/18 Lunch) Accucheck Stat ONCE (06/22/18 10:11) Saline Lock/Iv-Start (06/22/18 10:11) Saline Lock/Iv-Start (06/22/18 10:11) Vital Signs Stroke Patient Q15M (06/22/18 10:11) Ct Head Wo-R/O Stroke (06/22/18 10:11) O2 (06/22/18 10:11) Intake & Output 06,14,22 (06/22/18 10:11) Monitor-Rhythm Ecg Trace Only (06/22/18 10:11) Dysphagia Screening Tool (06/22/18 10:11) Lipid Panel (06/23/18 06:00) Vital Signs/I&O 06/22/18 10:00 Temp 97.1 Pulse 89 Resp 19 B/P (MAP) 177/88 (117) Pulse Ox 100 O2 Delivery Room Air Blood Pressure Mean: 117 FSBG Bedside Testing Finger Stick Blood Glucose: 109 Progress Progress Note : Progress Note Stroke activation was paged after initial assessment as onset of symptoms was within about 12 hours of presentation. Patient was not a TPA candidate due to time of onset being greater than 4.[address] of the head revealed chronic abnormalities but no acute hemorrhage, mass, or evidence of stroke. Workup was grossly unremarkable otherwise. Case was discussed with Dr. Mejia, stroke neurologist at [facility]. He advised no further interventions to be performed in the ER but did advise completing a stroke workup with echocardiogram, carotid ultrasound, and MRI of the brain during an observation admission. Unfortunately, not all of these studies could be provided at [facility] in a timely fashion. I did order a carotid ultrasound but patient declined because her family preferred to have the remainder of studies done at the receiving facility. Carotid ultrasound was canceled and aspirin was not given as they requested no further care be given at this facility. I discussed the case with Dr. DAIGLE, patient's primary care provider. She recommended the patient have her workup completed elsewhere where it could be done in a more prompt fashion. They requested transfer to [facility] to complete her workup. Case was discussed with Dr. Sarabia, hospitalist, at 14:15. He accepted transfer. Patient was stable and allowed to transfer by private vehicle. She passed her swallow assessment performed by nursing staff. Initial ECG Impression Date: Jun 22, 2018 Initial ECG Impression Time: 10:05 Initial ECG Rate: 99 Initial ECG Rhythm: Normal Sinus Initial ECG Intervals: Normal Initial ECG Impression: Normal Comment Normal sinus rhythm with no ST elevation or depression. No abnormal intervals or axis deviation. Diagnostic Imaging Diagonstic Imaging: CT Plain Films/CT/US/NM/MRI: head Comments CT head viewed by me and report reviewed. See report below: NAME: JAMAICA [facility] REC#: [id number] PT STATUS: REG ER : 1945 PHYSICIAN: KIRK BRIGGS MD ADMIT DATE: 06/22/18/ER Draft Date of Exam:06/22/18 CT HEAD WO-R/O STROKE CLINICAL INDICATION: Patient with left-sided facial numbness. EXAM: Axial CT scan of the brain performed without IV contrast. COMPARISON: None. FINDINGS: There is no evidence of acute cerebral infarct, intracranial hemorrhage, or gross mass effect. The brain parenchymal volume appears appropriate for patient's age. There is a small area of chronic cerebral infarct involving the right external capsule/right basal ganglia region. There is a small area of low attenuation involving the left frontal lobe periventricular region and anterior internal capsule region. There is also a small area of low attenuation involving the left caudate head. These findings may be related to chronic ischemic changes. There are other focal areas of low-attenuation white matter changes involving both cerebral hemispheres, likely representing chronic small vessel ischemic disease. There is normal sahford-white matter distinction. There is no significant midline shift or herniation. There is no evidence of hydrocephalus. The basal cisterns are unremarkable. The skull, extracranial soft tissue, and orbits are unremarkable. The paranasal sinuses are unremarkable. Temporal bones show no significant abnormality. IMPRESSION: 1: There is no definite CT evidence of interval acute cerebral infarction, intracranial hemorrhage, or mass seen. Given the diffuse low-attenuation changes throughout the brain parenchyma which can obscure more subtle findings, if there is clinical concern for acute cerebral infarction, MRI of the brain would better evaluate. 2: There are small areas of suspected chronic infarcts involving the bilateral frontal lobes, as described above. 3: Chronic small vessel ischemic disease. Results of this report were relayed to Alex nurse working with Dr. Kirk Briggs, via the telephone on 06/22/2018 at 1105 hours. Dictated on workstation # [id number] Dict: 06/22/18 1059 Trans: 06/22/18 1133 [id number] Interpreted by: CALEB FAN MD Diagonstic Imaging: Xray Plain Films/CT/US/NM/MRI: chest Comments NAME: JAMAICA PABON [facility] REC#: [id number] PT STATUS: REG ER : 1945 PHYSICIAN: KIRK BRIGGS MD ADMIT DATE: 06/22/18/ER Signed Date of Exam: 06/22/18 CHEST 1 VIEW, AP/PA ONLY INDICATION: Difficulty swallowing left facial numbness. COMPARISON: 03/23/2018. FINDINGS: The lungs are clear. The heart and vessels are normal. There is no effusion or pneumothorax. IMPRESSION: No acute appearing abnormality. Dictated by: Dictated on workstation # [id number] Dict: 06/22/18 1053 Trans: 06/22/18 1408 Interpreted by: MARYJO MONZON Electronically signed by: MARYJO MONZON 06/22/18 1408 Departure Impression Primary Impression: Left-sided weakness Disposition: XF SHT-TRM HOSP Condition: Stable Departure-Patient Inst. Decision time for Depature: 14:15 Referrals: DIXIE DAIGLE DO (PCP/Family) Primary Care Physician Patient Instructions: Stroke Add. Discharge Instructions: Please go directly to [facility] in [place] and check in at admissions. All discharge instructions reviewed with patient and/or family. Voiced understanding. KIRK BRIGGS MD Jun 22, 2018 14:42
[2018-06-22 15:06] VITALS: BP 158/85
== END 2018-06-22 15:06 | disposition short-term general hospital (02) ==
LOC: EDUNIT# 09:57 → ER 09:58
DX: M62.81 Muscle weakness (generalized) (principal); I25.10 Atherosclerotic heart disease of native coronary artery without angina pectoris; K21.9 Gastro-esophageal reflux disease without esophagitis; M81.0 Age-related osteoporosis without current pathological fracture; F41.9 Anxiety disorder, unspecified; F32.9 Major depressive disorder, single episode, unspecified; D56.9 Thalassemia, unspecified; Z88.1 Allergy status to other antibiotic agents; Z98.890 Other specified postprocedural states; Z80.0 Family history of malignant neoplasm of digestive organs; Z80.1 Family history of malignant neoplasm of trachea, bronchus and lung
CPT/HCPCS: 36415; 70450; 71045; 80053; 81000; 82962; 84484; 85025; 85379; 85610; 85730; 93041

== ENCOUNTER → 2018-06-27 | Outpatient (RCR) | payer MEDICARE, OTHER | END | disposition home or self-care (01) | LOC: CR3 05-28 11:00 | PROVIDERS: ATTEND Family Medicine | DX: Z29.8 Encounter for other specified prophylactic measures (principal) ==

== ENCOUNTER → 2018-08-01 | Outpatient (RCR) | payer MEDICARE, OTHER | END | disposition home or self-care (01) | LOC: CR3 07-02 11:00 | PROVIDERS: ATTEND Family Medicine | DX: Z29.8 Encounter for other specified prophylactic measures (principal) ==

== ENCOUNTER 2018-08-29 11:30 | Outpatient (RCR) | payer MEDICARE, OTHER | END 2018-09-01 | disposition home or self-care (01) | LOC: CR3 11:30 | PROVIDERS: ATTEND Family Medicine | DX: Z29.8 Encounter for other specified prophylactic measures (principal) ==

== ENCOUNTER 2018-10-02 06:00 | Outpatient (RCR) | payer MEDICARE, OTHER | END 2018-10-03 | disposition home or self-care (01) | LOC: CR3 06:00 | PROVIDERS: ATTEND Family Medicine | DX: Z29.8 Encounter for other specified prophylactic measures (principal) ==

== ENCOUNTER → 2018-11-07 | Outpatient (RCR) | payer MEDICARE, OTHER | END | disposition home or self-care (01) | LOC: CR3 10-08 10:03 | PROVIDERS: ATTEND Family Medicine | DX: Z29.8 Encounter for other specified prophylactic measures (principal) ==

== ENCOUNTER 2018-11-14 10:30 | Outpatient (RCR) | payer MEDICARE, OTHER | END 2018-11-14 11:50 | disposition home or self-care (01) | PROVIDERS: ATTEND Family Medicine | DX: I69.334 Monoplegia of upper limb following cerebral infarction affecting left non-dominant side (principal) ==

== ENCOUNTER → 2018-11-30 | Outpatient (CLI) | payer MEDICARE, OTHER ==
[~2018-11-30] VITALS: Ht 157.5 cm; Wt 81.6 kg
[~2018-11-30] MED LIST changes: +DENOSUMAB 60 MG/1 ML (PROLIA) SQ NR
[2018-11-30 12:48] VITALS: BP 123/59
[2018-11-30 12:59] LABS: BASOPHILS % (AUTO) 0 % (0-10); EOSINOPHILS # (AUTO) 0.2 10^3/uL (0.0-0.3); EOSINOPHILS % (AUTO) 2 % (0-10); HEMATOCRIT 32 % (35-52); HEMOGLOBIN 10.6 G/DL (11.5-16.0); LYMPHOCYTES # (AUTO) 1.6 X 10^3 (1.0-4.0); LYMPHOCYTES % (AUTO) 25 % (12-44); MEAN CORPUSCULAR HEMOGLOBIN 22 PG (25-34); MEAN CORPUSCULAR HGB CONC 33 G/DL (32-36); MEAN CORPUSCULAR VOLUME 65 FL (80-99); MONOCYTES # (AUTO) 0.4 X 10^3 (0.0-1.0); MONOCYTES % (AUTO) 5 % (0-12); NEUTROPHILS # (AUTO) 4.3 X 10^3 (1.8-7.8); NEUTROPHILS % (AUTO) 67 % (42-75); PLATELET COUNT 344 10^3/uL (130-400); RED CELL DISTRIBUTION WIDTH 15.9 % (10.0-14.5); WHITE BLOOD COUNT 6.4 10^3/uL (4.3-11.0)
[2018-11-30 13:18] LABS: BUN/CREATININE RATIO 16; CALCIUM 9.1 MG/DL (8.5-10.1); CARBON DIOXIDE 25 MMOL/L (21-32); CHLORIDE 104 MMOL/L (98-107); CREATININE SERUM 0.79 MG/DL (0.60-1.30); GFR ESTIMATED > 60; GLUCOSE 80 MG/DL (70-105); POTASSIUM 3.6 MMOL/L (3.6-5.0); SODIUM 140 MMOL/L (135-145)
[2018-12-06 12:52] VITALS: BP 120/55
== END ==
LOC: SDC 12:34
PROVIDERS: ATTEND Family Medicine
DX: M81.0 Age-related osteoporosis without current pathological fracture (principal)
CPT/HCPCS: 36415; 80048; 85025; 96372

== ENCOUNTER 2018-12-12 10:29 | Outpatient (RCR) | payer MEDICARE, OTHER ==
[~2018-12-12 10:29] MED LIST changes: -DENOSUMAB 60 MG/1 ML (PROLIA) SQ NR
== END 2018-12-13 | disposition home or self-care (01) ==
LOC: CR3 10:29
PROVIDERS: ATTEND Family Medicine
DX: Z29.8 Encounter for other specified prophylactic measures (principal)

== ENCOUNTER 2019-01-08 06:00 | Outpatient (RCR) | payer MEDICARE, OTHER | END 2019-01-16 | disposition home or self-care (01) | LOC: CR3 06:00 | PROVIDERS: ATTEND Family Medicine | DX: Z29.8 Encounter for other specified prophylactic measures (principal) ==

== ENCOUNTER 2019-02-13 11:13 | Outpatient (RCR) | payer MEDICARE, OTHER | END 2019-02-22 | disposition home or self-care (01) | LOC: CR3 11:13 | PROVIDERS: ATTEND Family Medicine | DX: Z29.8 Encounter for other specified prophylactic measures (principal) ==

== ENCOUNTER 2019-03-26 06:00 | Outpatient (RCR) | payer MEDICARE, OTHER | END 2019-03-30 | disposition home or self-care (01) | LOC: CR3 06:00 | PROVIDERS: ATTEND Family Medicine | DX: Z29.8 Encounter for other specified prophylactic measures (principal) ==

== ENCOUNTER 2019-05-08 10:58 | Outpatient (RCR) | payer MEDICARE, OTHER | END 2019-05-15 | disposition home or self-care (01) | LOC: CR3 10:58 | PROVIDERS: ATTEND Family Medicine | DX: Z29.8 Encounter for other specified prophylactic measures (principal) ==

== ENCOUNTER 2019-06-13 06:00 | Outpatient (RCR) | payer MEDICARE, OTHER | END 2019-06-15 | disposition home or self-care (01) | LOC: CR3 06:00 | PROVIDERS: ATTEND Family Medicine | DX: Z29.8 Encounter for other specified prophylactic measures (principal) ==

== ENCOUNTER → 2019-07-17 | Outpatient (RCR) | payer MEDICARE, OTHER | END | disposition home or self-care (01) | LOC: CR3 06-17 11:00 | PROVIDERS: ATTEND Family Medicine | DX: Z29.8 Encounter for other specified prophylactic measures (principal) ==

== ENCOUNTER 2019-08-01 06:00 | Outpatient (RCR) | payer MEDICARE, OTHER | END 2019-08-18 | disposition home or self-care (01) | LOC: CR3 06:00 | PROVIDERS: ATTEND Family Medicine | DX: Z29.8 Encounter for other specified prophylactic measures (principal) ==

== ENCOUNTER → 2020-05-05 | Outpatient (CLI) | payer MEDICARE, OTHER ==
[~2020-05-05] MED LIST changes: -PANT40TA3 PO; +PANT40TA52 PO
== END ==
LOC: LABNPT 05:17
PROVIDERS: ATTEND Family Medicine
DX: J32.9 Chronic sinusitis, unspecified (principal); Z20.828 Contact with and (suspected) exposure to other viral communicable diseases
CPT/HCPCS: 87635

== ENCOUNTER 2020-11-05 10:09 | Outpatient (RCR) | payer MEDICARE, OTHER | END 2020-11-05 10:54 | disposition home or self-care (01) | PROVIDERS: ATTEND Nurse Practitioner | DX: S86.111D Strain of other muscle(s) and tendon(s) of posterior muscle group at lower leg level, right leg, subsequent encounter (principal) ==